=== PATIENT | female | born 1945 | race Caucasian/White ===

== ENCOUNTER 2017-02-05 08:23 | Day surgery (SDC) | payer MEDICARE, BC ==
[2017-02-04 09:47] VITALS: BMI 26.2
[~2017-02-05 08:23] MED LIST: LACTATED RINGERS 1,000 ML IV SCH
[2017-02-05 09:48] VITALS: TEMP 98.4
[2017-02-05] MEDS ORDERED: LIDOCAINE 1% 20 ML VIAL (10MG/ML) FOR IV START INTRADERMA ONE (09:54)
[2017-02-05] MEDS ORDERED: LACTATED RINGERS 1,000 ML IV ONE (09:54)
[2017-02-05] MEDS ORDERED: PROPOFOL 10 MG/ML 20 ML VIAL IV ONE (10:08)
[2017-02-05] MEDS ORDERED: fentaNYL (PF) 50 MCG/ML 2 ML AMP ONE (10:08)
[2017-02-05] MEDS ORDERED: MIDAZOLAM 2 MG/2 ML VIAL ONE (10:08)
--- NOTE | 2017-02-05 10:36 | P.PCN ---
Date of Procedure: 02/05/17 Procedure(s) Performed: BRIEF HISTORY: Patient is a 71-year-old pleasant white female, scheduled for an elective colonoscopy as a part of evaluation of intermittent rectal bleeding for the last several months duration. She has bleeding mostly to 4 times a week. Denies any abdominal pain. PROCEDURE PERFORMED: Colonoscopy. PREOPERATIVE DIAGNOSIS: Rectal bleeding. IV sedation per Anesthesia. PROCEDURE: After informed consent was obtained, the patient, was brought into the endoscopy unit. IV sedation was administered by Anesthesia under continuous monitoring. Digital rectal examination was normal. Initially the Olympus CF- 160 flexible video colonoscope was then inserted in the rectum, gradually advanced into the distal sigmoid colon and further advancement was not possible because of acute angulation in this area. The scope was removed and a pediatric colonoscope was then introduced into the rectum and with gentle manipulation the scope was advanced into the cecum with moderate to severe difficulty. Careful examination was performed as the scope was gradually being withdrawn. Ileocecal valve and the appendiceal orifice were visualized and appeared normal. Prep was excellent. Mucosa of the cecum, ascending colon, transverse colon, descending colon, sigmoid colon, and rectum appeared normal. scattered sigmoid diverticula seen. Retroflexion was performed in the rectum and grade 2 internal hemorrhoids were seen. No rectal prolapse identified. The patient tolerated the procedure well. IMPRESSION: Scattered sigmoid diverticulosis No evidence of colorectal neoplasia Grade 2 internal hemorrhoids RECOMMENDATIONS: Findings of this examination were discussed with the patient [ as well as a family. She was advised to be on a high-fiber diet and take fiber supplements a regular basis. She will be scheduled to see , for banding of internal hemorrhoids.
[2017-02-05 10:38] VITALS: RESP 16
[2017-02-05 10:51] VITALS: BP 141/84; PULSE 55
== END 2017-02-05 11:41 | disposition home or self-care (01) ==
LOC: ORWHC2ENDO 08:23
PROVIDERS: ATTEND Internal Medicine Gastroenterology
DX: K57.30 Diverticulosis of large intestine without perforation or abscess without bleeding (principal); K64.8 Other hemorrhoids; Z87.19 Personal history of other diseases of the digestive system; I10 Essential (primary) hypertension; Z79.899 Other long term (current) drug therapy; Z88.1 Allergy status to other antibiotic agents; Z91.041 Radiographic dye allergy status
CPT/HCPCS: 45378; J2250; J3010; J2704